=== PATIENT | female | born 1970 | race Caucasian/White ===

== ENCOUNTER → 2016-09-30 | Outpatient (CLI) | payer BC ==
[~2016-09-30] MED LIST: CIPRO PO; FLAGYL PO; NO MEDICATIONS; PHENERGAN25 MG PO; VOLTAREN75 MG PO
--- NOTE | ~2016-09-30 | MY11 ---
[facility] A Service of [facility] RADIOLOGY TEXT RESULTS PATIENT: RANDI KAPADIA LOCATION: [facility] : [birth year] UNIT #: [id number] AGE: [address]: Olga Lidia Maharaj APRN SEX: F ORDER DR: [id number] [address] [address] [id number] MR#: [id number] Acc #: [id number] NAME: RANDI KAPADIA : 1970 SEX: F STUDY DATE/TIME: 09/30/2016 12:14 UNIT: [facility] ROOM: STUDY DESCRIPTION: MY Mammogram Screening Dig Carlito Attending Physician: Olga Lidia Maharaj A.P.R.N. Referring Physician: Olga Lidia Maharaj A.P.R.N. Ordering Physician: Olga Lidia Maharaj A.P.R.N. Primary Care Physician: Clark Bishop M.D. MEDICAL IMAGING REPORT This report is preliminary unless electronic signature is present. EXAM Bilateral Digital Screening Mammogram with CAD INDICATION Breast cancer screening. 46-year-old asymptomatic female who reports a maternal aunt with breast cancer at age 50. COMPARISON None. Baseline exam. FINDINGS The breasts are almost entirely fatty. No suspicious findings are present. IMPRESSION No mammographic evidence of malignancy. Annual screening mammography and clinical breast exam are recommended. A result letter will be sent to the patient. Patients over the age of 40 are entered into a reminder system with target due date for the next mammogram. BIRADS: 1 Negative Dictated by... Chris Briggs M.D. THIS IS AN ELECTRONICALLY VERIFIED REPORT Chris Briggs M.D. at 09/30/2016 8:55 PM BLM/pcl [facility] A Service of [facility] RADIOLOGY TEXT RESULTS PATIENT: RANDI KAPADIA LOCATION: [facility] : 68 UNIT #: [id number] AGE: [address]: Olga Lidia Maharaj APRN SEX: F ORDER DR: TD: 09/30/2016 16:18 JOB #: [id number] MEDICAL IMAGING REPORT
== END | disposition home or self-care (01) ==
LOC: SMAM 08:22
DX: Z12.31 Encounter for screening mammogram for malignant neoplasm of breast (principal); Z80.3 Family history of malignant neoplasm of breast
CPT/HCPCS: G0202